=== PATIENT | male | born 1975 | race Caucasian/White ===

== ENCOUNTER 2019-03-13 12:46 | Outpatient (CLI) | payer OTHER ==
--- NOTE | 2019-03-15 09:06 | ULT ---
Scrotal sonogram with duplex evaluation HISTORY: Right scrotal mass. FINDINGS: The right testicle is 3.9 cm greatest length and the left is 3.7 cm. Each has a normal appe arance with good color and spectral Doppler flow. Small amount of free fluid in the left side of the scrotum. Moderate amount on the right. A well-circumscribed oval mass within the right scrotal fluid contains internal calcification and lik su represents a sperm granuloma. IMPRESSION: No evidence of testicular mass or torsion. Sperm granuloma within the right side of the scrotum with moderate amount of hydrocele fluid.
== END 2019-03-13 12:47 | disposition home or self-care (01) ==
LOC: BURULT 12:46
PROVIDERS: ATTEND Nurse Practitioner
DX: L72.9 Follicular cyst of the skin and subcutaneous tissue, unspecified (principal); N43.3 Hydrocele, unspecified; L92.8 Other granulomatous disorders of the skin and subcutaneous tissue
CPT/HCPCS: 76870